=== PATIENT | female | born 1995 | race Caucasian/White ===

== ENCOUNTER 2018-02-10 22:36 | Outpatient (CLI) | payer OTHER | END 2018-02-11 12:29 | disposition home or self-care (01) | LOC: OBS/DEL 22:36 | DX: O60.03 Preterm labor without delivery, third trimester (principal); Z34.03 Encounter for supervision of normal first pregnancy, third trimester ==

== ENCOUNTER 2018-03-06 22:14 | Inpatient (IN) | payer OTHER ==
[~2018-03-06] VITALS: Ht 162.6 cm; Wt 73.9 kg
[2018-03-06] MEDS ORDERED: PRENATAL 19 TA1 EACH PO (23:22)
[2018-03-06] MEDS ORDERED: IRON18 MG PO (23:22)
== END 2018-03-09 12:48 | disposition home or self-care (01) | DRG 775 ==
LOC: LDR 22:14 → OB/GYN 22:14 → LDR 03-07 01:00 → OB/GYN 03-07 18:13 → LDR 03-07 18:13 → OB/GYN 03-09 12:48
PROC: 10E0XZZ Delivery of Products of Conception, External Approach (ICD-10-PCS; principal; 2018-03-07)
PROC: 10907ZC Drainage of Amniotic Fluid, Therapeutic from Products of Conception, Via Natural or Artificial Opening (ICD-10-PCS; 2018-03-07)
PROC: 3E0P7VZ Introduction of Hormone into Female Reproductive, Via Natural or Artificial Opening (ICD-10-PCS; 2018-03-07)
PROC: 3E033VJ Introduction of Other Hormone into Peripheral Vein, Percutaneous Approach (ICD-10-PCS; 2018-03-07)
PROC: 4A033R1 Measurement of Arterial Saturation, Peripheral, Percutaneous Approach (ICD-10-PCS; 2018-03-07)
PROC: 4A1HXCZ Monitoring of Products of Conception, Cardiac Rate, External Approach (ICD-10-PCS; 2018-03-07)
PROC: 0KQM0ZZ Repair Perineum Muscle, Open Approach (ICD-10-PCS; 2018-03-07)
DX: O70.1 Second degree perineal laceration during delivery (principal); Z37.0 Single live birth; O26.873 Cervical shortening, third trimester; Z3A.40 40 weeks gestation of pregnancy